=== PATIENT | male | born 1990 | race Caucasian/White ===

== ENCOUNTER 2017-09-09 17:48 | Emergency (ER) | payer BC ==
[2017-09-09 17:53] VITALS: BP 126/91; PULSE 106; RESP 16; TEMP 99.5; O2SAT 98
--- NOTE | 2017-09-09 18:14 | ED PDOC ---
HPI: Psych/Substance Abuse Time Seen by Provider: 09/09/17 18:12 Chief Complaint (Nursing): Psychiatric Evaluation Chief Complaint (Provider): crisis eval History Per: Patient Additional Complaint(s): 26 y/o M presents for crisis eval. Patient states he went to his friend's house today to check in on him after not hearing from him for a few days and he found patient hanging from closet. Patient immediately contacted police and was brought here for crisis evaluation. Patient states he feels as if he is in shock. He denies any suicidal or homicidal ideation. He states he does not know how to feel. PMD: none Past Medical History Reviewed: Historical Data, Nursing Documentation, Vital Signs Vital Signs: Last Vital Signs Temp 99.5 F 09/09/17 17:51 Pulse 106 H 09/09/17 17:51 Resp 16 09/09/17 17:51 BP 126/91 H 09/09/17 17:51 Pulse Ox 98 09/09/17 17:51 - Medical History PMH: No Chronic Diseases - Surgical History Surgical History: No Surg Hx - Family History Family History: States: No Known Family Hx - Living Arrangements Living Arrangements: With Friends/Others - Social History Current smoker - smoking cessation education provided: No Alcohol: Social Drugs: Denies - Allergies Allergies/Adverse Reactions: Allergies Allergy/AdvReac Type Severity Reaction Status Date / Time No Known Allergies Allergy Verified 09/09/17 19:51 Review of Systems ROS Statement: Except As Marked, All Systems Reviewed And Found Negative Psych: Positive for: Other (here for crisis eval). Negative for: Suicidal ideation Physical Exam - Reviewed Nursing Documentation Reviewed: Yes Vital Signs Reviewed: Yes - Physical Exam Appears: Positive for: Well, Non-toxic, No Acute Distress Skin: Negative for: Rash Eye Exam: Positive for: Normal appearance Cardiovascular/Chest: Positive for: Regular Rate, Rhythm Respiratory: Positive for: Normal Breath Sounds Extremity: Positive for: Normal ROM Neurologic/Psych: Positive for: Alert, Oriented, Mood/Affect (anxious) - ECG O2 Sat by Pulse Oximetry: 98 Pulse Ox Interpretation: Normal Medical Decision Making Medical Decision Makin26 y/o M here for crisis eval s/p finding his friend who just committed suicide. Plan: Crisis consult As per crisis counselor and psychiatrist rehabilitation construction specialist Dr. Pereyra, patient does not meet criteria for admission. Patient was offered resources for outpatient follow -up but he declined. He states he is going to go home and talk to his roommate and then drive to his parents house this evening. Patient states he has a good support system at home. He was instructed to follow up as needed with primary doctor or return to ED any time if acutely worse. Disposition - Clinical Impression Clinical Impression: Grief reaction Counseled Patient/Family Regarding: Need For Followup - Disposition Referrals: [facility] [Outside] Disposition: Routine/Home Disposition Time: 19:01 Condition: FAIR Additional Instructions: Follow-up as needed with primary doctor. Return to emergency room anytime if acutely worse. Instructions: Dealing With , Adult Forms: [employer] ([place]ian)
== END 2017-09-09 19:16 | disposition home or self-care (01) ==
LOC: H.ER 17:48
DX: F43.20 Adjustment disorder, unspecified (principal)